=== PATIENT | female | born 1995 | race Caucasian/White ===

== ENCOUNTER 2018-01-02 20:50 | Emergency (ER) | payer OTHER ==
[~2018-01-02] VITALS: Ht 165.1 cm; Wt 63.5 kg
[2018-01-02] MEDS ORDERED: ONDANSETRON PF 4 MG/2 ML VIAL. IV ONE (22:15)
[2018-01-02] MEDS ORDERED: IV NORMAL SALINE 1,000ML 1,000 ML IV ONE (22:15)
[2018-01-02] MEDS ORDERED: cefTRIAXone IV Push 1 GM VIAL. IVP ONE (22:15)
[2018-01-02] MEDS ORDERED: PHENAZOPYRIDINE 200 MG TABLET. PO ONE (22:15)
--- NOTE | 2018-01-02 22:35 | RAD ---
CT ABDOMEN PELVIS WO CONTRAST dated 01/02/2018 10:11 PM Indication: Pain [id number] Bilateral flank pain, some lower anterior abdomen pain also, nausea, vomiting, blood in urine. No priors.. Comparison: No comparison is available. Technique: Contiguous axial imaging of the abdomen and pelvis performed without the administration of IV or oral contrast. One or more of the following individualized dose reduction techniques were utilized for this examination: 1. Automated exposure control 2. Adjustment of the mA and/or kV according to patient size 3. Use of iterative reconstruction technique Findings: Limited images of the lung Bases are clear. Heart size within normal limits. No pleural pericardial effusion. Solid abdominal viscera not well evaluated in the absence of contrast material. No apparent attenuation abnormality of the liver or spleen. Pancreas, adrenal glands and kidneys are unremarkable. No stone or hydronephrosis. Unopacified GI tract is normal in caliber and contour. No focal bowel wall thickening. The appendix is normal in caliber. No ascites or lymphadenopathy. Abdominal aorta normal in caliber. Images of pelvis show nondistended urinary bladder. There is diffuse bladder wall thickening with mild inflammatory changes in the pericystic fat. Trace amount of free pelvic fluid. No pelvic adenopathy. Uterus and adnexa are unremarkable. Bone windows show no acute findings. IMPRESSION: 1. Mild diffuse wall thickening of the urinary bladder with pericystic inflammatory stranding. Consider acute or chronic cystitis. 2. Small amount of free pelvic fluid, nonspecific. 3. No evidence of renal stone or hydronephrosis. Electronically signed by: Awais Wilkinson MD (01/02/2018 10:32 PM) [facility]
[2018-01-02 22:48] LABS: BASO # 0.1 x10^3/uL (0.0-0.2); BASO % 1 % (0-3); EOS # 0.2 x10^3/uL (0.0-0.7); EOS % 1 % (0-3); HEMATOCRIT 40.8 % (36.0-47.0); HEMOGLOBIN 13.9 g/dL (12.0-15.5); LYMPH # 2.6 x10^3/uL (1.0-4.8); LYMPH % 19 % (24-48); MEAN CORPUSCULAR HEMOGLOBIN 31 pg (25-35); MEAN CORPUSCULAR HGB CONC 34 g/dL (31-37); MEAN CORPUSCULAR VOLUME 92 fL (79-100); MONO # 0.9 x10^3/uL (0.0-1.1); MONO % 7 % (0-9); NEUT # 9.8 x10^3uL (1.8-7.7); NEUT % 72 % (31-73); PLATELET COUNT 254 x10^3/uL (140-400); RED BLOOD COUNT 4.44 x10^6/uL (3.50-5.40); RED CELL DISTRIBUTION WIDTH 12.2 % (11.5-14.5); WHITE BLOOD COUNT 13.7 x10^3/uL (4.0-11.0)
[2018-01-02 22:50] LABS: CALCIUM 9.4 mg/dL (8.5-10.1); CREATININE 0.8 mg/dL (0.6-1.0); GFR 89.7; POTASSIUM 3.6 mmol/L (3.5-5.1)
[2018-01-02 22:54] LABS: BACTERIA,URINE MANY /HPF (0-FEW); BILIRUBIN,URINE NEG (NEG); CLARITY,URINE HAZY; COLOR,URINE YELLOW; GLUCOSE,URINE 100 mg/dL (NEG); NITRITE,URINE POS (NEG); SQUAMOUS EPITHELIAL CELL,UR MANY /LPF; UROBILINOGEN,URINE 1 mg/dL (0.2 mg/dL); WBC,URINE >40 /HPF (0-4)
[2018-01-02 23:00] VITALS: BP 122/70
[2018-01-02] MEDS ORDERED: TRAM-48 PO (23:00)
[2018-01-02] MEDS ORDERED: PHEN-318 PO (23:00)
[2018-01-02] MEDS ORDERED: traMADol 50 MG TABLET PO ONE (23:00)
--- NOTE | 2018-01-02 23:00 | PHYS DOC ---
Past History Past Medical History: UTI Past Surgical History: Alcohol Use: None Drug Use: None Adult General Chief Complaint Chief Complaint: PAIN ON URINATION HPI HPI Patient is a 22-year-old female who presents here today secondary to dysuria and pain to her left flank region. Patient reports that she saw her doctor earlier today and she was given a shot of Toradol and Rocephin and given a prescription for Cipro. Patient reports that this evening she does feel any better still having significant amount discomfort so she was instructed to come to the ER for further evaluation. Patient has any history of fevers shakes chills nausea vomiting diarrhea. Patient reports no history of kidney stones in the past. Patient complains of significant amount of dysuria frequency or urgency. Patient complaining of pain radiating to her flank. Patient denies any tenderness near the McBurney's point. Review of systems: Constitutional: Denies fever or chills Eyes: Denies change in visual acuity, redness, or eye pain HENT: Denies nasal congestion or sore throat All other review systems are negative except as documented in the history of present illness portion. Physical exam: Constitutional: Well developed, well nourished, no acute distress, non-toxic appearance. HENT: Normocephalic, atraumatic, bilateral external ears normal, nose normal. Eyes: EOMI, conjunctiva normal, no discharge. Neck: Normal range of motion, no tenderness, supple, no stridor. Cardiovascular:Heart rate regular rhythm Lungs & Thorax: Bilateral breath sounds clear to auscultation no respiratory distress Abdomen: Bowel sounds normal, soft, tenderness, no masses, no pulsatile masses. Skin: Warm, dry, no erythema, no rash. Back: Left flank tenderness Extremities: No tenderness, no cyanosis, no clubbing, ROM intact, no edema. Neurologic: Alert and oriented X 3, normal motor function, normal sensory function, no focal deficits noted. Psychologic: Affect normal, judgement normal, mood normal. Abdomen soft tenderness to palpation suprapubic region. Tender to palpation left flank. Tender no rebound or guarding NABS. No Wheeler sign, no tenderness to McBurney's point. Patient not present with any signs or symptoms of be consistent with an acute surgical abdomen. CT of the abdomen pelvis: No evidence of renal stones. Consistent with cystitis. Assessment and plan 22-year-old female who presents here today with sinus symptoms consistent with urinary tract infection. Given the patient's flank tenderness a CT scan was obtained to rule out renal colic with bilateral hydronephrosis. CT scan was negative. There was no evidence of appendicitis or kidney stones. Patient does feel improved after the IV fluids in the ED. Patient be given Ultram and instructed to continue the antibiotics prescribed by her primary care physician. Current Medications Current Medications Current Medications Medications (Trade) Dose Ordered Sig/Natali Start Time Stop Time Status Last Admin Dose Admin Ceftriaxone Sodium 1 gm/ Sodium Chloride 50 ml @ 100 mls/hr 1X ONCE 01/02/18 22:15 01/02/18 22:44 UNV Ceftriaxone Sodium (Rocephin) 1 gm 1X ONCE 01/02/18 22:15 01/02/18 22:16 DC 01/02/18 22:37 1 GM Ondansetron HCl (Zofran) 4 mg 1X ONCE 01/02/18 22:15 01/02/18 22:16 DC 01/02/18 22:35 4 MG Phenazopyridine HCl (Pyridium) 200 mg 1X ONCE 01/02/18 22:15 01/02/18 22:16 DC 01/02/18 22:37 200 MG Sodium Chloride 1,000 ml @ 1,000 mls/hr 1X ONCE 01/02/18 22:15 01/02/18 23:14 01/02/18 22:35 1,000 MLS/HR Allergies Allergies Allergies Coded Allergies Type Severity Reaction Last Updated Verified amoxicillin Allergy Unknown 01/02/18 Yes Current Patient Data Vital Signs Vital Signs Date Time Temp Pulse Resp B/P (MAP) Pulse Ox O2 Delivery O2 Flow Rate FiO2 01/02/18 21:05 98.7 100 18 98 Room Air Lab Results Laboratory Tests Test 01/02/18 21:16 01/02/18 22:25 POC Urine HCG, Qualitative hcg negative (Negative) White Blood Count 13.7 x10^3/uL (4.0-11.0) H Red Blood Count 4.44 x10^6/uL (3.50-5.40) Hemoglobin 13.9 g/dL (12.0-15.5) Hematocrit 40.8 % (36.0-47.0) Mean Corpuscular Volume 92 fL (79-100) Mean Corpuscular Hemoglobin 31 pg (25-35) Mean Corpuscular Hemoglobin Concent 34 g/dL (31-37) Red Cell Distribution Width 12.2 % (11.5-14.5) Platelet Count 254 x10^3/uL (140-400) Neutrophils (%) (Auto) 72 % (31-73) Lymphocytes (%) (Auto) 19 % (24-48) L Monocytes (%) (Auto) 7 % (0-9) Eosinophils (%) (Auto) 1 % (0-3) Basophils (%) (Auto) 1 % (0-3) Neutrophils # (Auto) 9.8 x10^3uL (1.8-7.7) H Lymphocytes # (Auto) 2.6 x10^3/uL (1.0-4.8) Monocytes # (Auto) 0.9 x10^3/uL (0.0-1.1) Eosinophils # (Auto) 0.2 x10^3/uL (0.0-0.7) Basophils # (Auto) 0.1 x10^3/uL (0.0-0.2) Sodium Level 140 mmol/L (136-145) Potassium Level 3.6 mmol/L (3.5-5.1) Chloride Level 102 mmol/L (98-107) Carbon Dioxide Level 30 mmol/L (21-32) Anion Gap 8 (6-14) Blood Urea Nitrogen 13 mg/dL (7-20) Creatinine 0.8 mg/dL (0.6-1.0) Estimated GFR (Cockcroft-Gault) 89.7 Glucose Level 88 mg/dL (70-99) Calcium Level 9.4 mg/dL (8.5-10.1) EKG EKG [] Radiology/Procedures Radiology/Procedures [] Course & Med Decision Making Course & Med Decision Making Pertinent Labs and Imaging studies reviewed. (See chart for details) [] Dragon Disclaimer Dragon Disclaimer This electronic medical record was generated, in whole or in part, using a voice recognition dictation system. Departure Departure: Impression: Primary Impression: Urinary tract infection Disposition: HOME, SELF-CARE Condition: IMPROVED Referrals: DAFNE BARKLEY (PCP) Patient Instructions: Urinary Tract Infection Scripts Phenazopyridine Hcl (PYRIDIUM) 200 Mg Tablet 200 MG PO TID, #9 TAB Prov: HANNAH CALL MD 01/02/18 Tramadol Hcl (ULTRAM) 50 Mg Tablet 50 MG PO PRN Q6HRS Y for PAIN, #20 TAB Prov: HANNAH CALL MD 01/02/18 HANNAH CALL MD Jan 02, 2018 23:00
== END 2018-01-02 23:23 | disposition home or self-care (01) ==
LOC: ER 20:50
DX: N39.0 Urinary tract infection, site not specified (principal); Z88.1 Allergy status to other antibiotic agents
CPT/HCPCS: 36415; 74176; 80048; 81001; 81025; 85025; 87086; 96361; 96374; 96375; 99285; J0696; J2405; J7030

== ENCOUNTER 2021-02-11 01:04 | Emergency (ER) | payer MEDICAID, OTHER ==
[~2021-02-11] VITALS: Ht 165.1 cm; Wt 68.2 kg
[~2021-02-11 01:04] MED LIST: PHEN-318 PO; TRAM-48 PO
[2021-02-11] MEDS ORDERED: IV NORMAL SALINE 1,000ML 1,000 ML IV ONE (01:30)
--- NOTE | 2021-02-11 01:40 | EKG ---
[address] [address] Test Date: 2021-02-11 Test Time: 01:32:06 Pat Name: VIVEK HERRERA Department: Room: Gender: F Seat Cover Maker: : 1995 Requested By: NJ BASSETT Order Number: [id number] Reading MD: Measurements Intervals [place] Rate: 96 P: -1 CA: 158 QRS: 36 QRSD: 84 T: 38 QT: 344 QTc: 441 Interpretive Statements SINUS RHYTHM NO SPECIFIC ECG ABNORMALITIES RI6.02 No previous ECG available for comparison
--- NOTE | 2021-02-11 01:47 | PHYS DOC ---
Past History Past Medical History: UTI Past Surgical History: Alcohol Use: None Drug Use: None Adult General Chief Complaint Chief Complaint: MULTIPLE COMPLAINTS HPI HPI This note was created in error, please see other note in chart Radiology/Procedures Radiology/Procedures [] Heart Score C/O Chest Pain: No Risk Factors: Risk Factors: DM, Current or recent (<one month) smoker, HTN, HLP, family history of CAD, obesity. Risk Scores: Risk Factors: DM, Current or recent (<one month) smoker, HTN, HLP, family history of CAD, obesity. Dragon Disclaimer Dragon Disclaimer This electronic medical record was generated, in whole or in part, using a voice recognition dictation system. Departure Departure: Referrals: PCP,NO (PCP) NJ BASSETT DO Feb 11, 2021 01:47
--- NOTE | 2021-02-11 01:54 | PHYS DOC ---
Past History Past Medical History: UTI Past Surgical History: Alcohol Use: None Drug Use: None Adult General HPI HPI Patient is a 25-year-old female who presents with nausea, and a general feeling of malaise. She reports that she woke this morning fine however around 12:30 PM she was laying in bed with her boyfriend and reports her waken up with abdominal cramping and wave of nausea. She reports she was trying to tell her boyfriend what was happening however was having difficulty communicating with him. She reports this episode lasted a couple minutes and when she came out of it she noticed that she had a headache and was really nauseous. She reports she currently feels out of it however has not vomited. She denies any medical history and denies any daily medications. Denies fevers at home, denies chest pain, shortness of breath, vomiting, diarrhea. Admits to marijuana use however denies tobacco, alcohol, and other drug use. Last meal was ~6-7 prior to waking up and was questionable BBQ ribs Review of Systems Review of Systems Fourteen body systems of review of systems have been reviewed. See HPI for pertinent positives and negative responses, other sorto all other systems are negative, non-pertinent or non-contributory Current Medications Current Medications Current Medications Medications (Trade) Dose Ordered Sig/Natali Start Time Stop Time Status Last Admin Dose Admin Sodium Chloride 1,000 ml @ 75 mls/hr 1X ONCE 02/11/21 01:30 02/11/21 14:49 Allergies Allergies Allergies Coded Allergies Type Severity Reaction Last Updated Verified amoxicillin Allergy Unknown 01/02/18 Yes Physical Exam Physical Exam Constitutional: Well developed, well nourished, no acute distress, non-toxic appearance. HENT: Normocephalic, atraumatic, bilateral external ears normal, oropharynx moist, no oral exudates, nose normal. Eyes: PERRLA, EOMI, conjunctiva normal, no discharge. Neck: Normal range of motion, no tenderness, supple, no stridor. Cardiovascular: Heart rate regular, sinus rhythm, no murmurs rubs or gallops Lungs & Thorax: Bilateral breath sounds clear to auscultation Abdomen: Bowel sounds normal, soft, no tenderness, no masses, no pulsatile masses. Nonsurgical abdomen, no peritoneal signs Skin: Warm, dry, no erythema, no rash. Back: No tenderness, no CVA tenderness. Extremities: No tenderness, no cyanosis, no clubbing, ROM intact, no edema. Neurologic: Alert and oriented X 3, grossly normal motor & sensory function, no focal deficits noted. Psychologic: Affect normal, judgement normal, mood normal. Current Patient Data Vital Signs Vital Signs Date Time Temp Pulse Resp B/P (MAP) Pulse Ox O2 Delivery O2 Flow Rate FiO2 02/11/21 01:10 98.2 99 16 122/84 (97) 100 Room Air Vital Signs Date Time Temp Pulse Resp B/P (MAP) Pulse Ox O2 Delivery O2 Flow Rate FiO2 02/11/21 03:20 88 18 126/80 (95) 99 02/11/21 01:10 98.2 Room Air EKG EKG EKG ordered and interpreted by myself at 1340 hrs. as sinus rhythm at 96 bpm, unremarkable intervals, no axis deviation, no acute ischemic findings, no STEMI Radiology/Procedures Radiology/Procedures Single view chest dated 02/11/2021: No comparison available. Clinical Indication: Tachycardia. Findings: Single upright portable exam of the chest was performed. Heart size and mediastinal contours are within normal limits given technique. The lungs are clear without evidence of focal consolidation. Vascular interstitium is within normal limits. Impression:: Negative portable chest. Electronically signed by: Awais Wilkinson MD (02/11/2021 2:21 AM) [facility] Heart Score C/O Chest Pain: No Risk Factors: Risk Factors: DM, Current or recent (<one month) smoker, HTN, HLP, family history of CAD, obesity. Risk Scores: Risk Factors: DM, Current or recent (<one month) smoker, HTN, HLP, family history of CAD, obesity. Course & Med Decision Making Course & Med Decision Making Tachy otherwise VSS. HPI concerning for non-specific GI symptoms after questionable PO ingestion. PE unremarkable for emergent/surgical issues ER workup unremarkable. She responded to ER intervention provided and was asking for discharge at completion of therapy I reviewed this was likely BBQ food related issues such as a self-limiting gastroenteritis but did disclose this might be an acute presentation of more concerning pathology She has pcp and can be seen for close follow-up in outpatient setting, good access to care strict return precautions discussed with god understanding [place] Disclaimer [place] Disclaimer This electronic medical record was generated, in whole or in part, using a voice recognition dictation system. Departure Departure: Impression: Primary Impression: Nausea Additional Impression: Headache Disposition: HOME / SELF CARE / HOMELESS Condition: IMPROVED Referrals: [facility]CP[facility] (PCP) Patient Instructions: Nausea, Adult Additional Instructions: As discussed prior to ER departure, your physical exam was reassuring, your ER diagnostic work-up was nonconcerning for any emergent or surgical findings. The cause of your presenting symptoms is unknown. I suspect this might be due to the ribs you ate for dinner. This also could be sequelae from atypical migraine and/or seizure. I discussed utility of further diagnostic work-up in ER but joint decision was made to defer due to complete symptomatic improvement with ER intervention provided so far. Due to uncertainty of presenting events today, it is essential for you to follow-up in outpatient setting with your primary care physician as soon as possible for repeat evaluation. As discussed, there might be indication for outpatient neurology visit or other as deemed necessary by your physician. If any concerning signs or symptoms present prior to outpatient follow-up please do not hesitate to come back for repeat evaluation. There is a pleasure to take care of you and I wish you the best going forward Problem Qualifiers NJ BASSETT DO Feb 11, 2021 01:54
[2021-02-11] MEDS ORDERED: ONDANSETRON PF 4 MG/2 ML VIAL. IVP ONE (02:00)
[2021-02-11] MEDS ORDERED: PROCHLORPERAZINE 10 MG/2 ML VIAL. IV ONE ×2 (02:00→02:30)
[2021-02-11] MEDS ORDERED: diphenhydrAMINE 50 MG/ML VIAL IVP ONE ×2 (02:00→02:30)
[2021-02-11] MEDS ORDERED: KETOROLAC 15 MG/ML VIAL. IVP ONE (02:00)
[2021-02-11] MEDS ORDERED: PROCHLORPERAZINE 10 MG/2 ML VIAL. ONE (02:12)
[2021-02-11] MEDS ORDERED: diphenhydrAMINE 50 MG/ML VIAL ONE (02:12)
[2021-02-11 02:18] LABS: BASO # 0.1 x10^3/uL (0.0-0.2); BASO % 1 % (0-3); EOS # 0.1 x10^3/uL (0.0-0.7); EOS % 1 % (0-3); HEMATOCRIT 42.4 % (36.0-47.0); HEMOGLOBIN 14.3 g/dL (12.0-15.5); LYMPH # 3.1 x10^3/uL (1.0-4.8); LYMPH % 30 % (24-48); MEAN CORPUSCULAR HEMOGLOBIN 31 pg (25-35); MEAN CORPUSCULAR HGB CONC 34 g/dL (31-37); MEAN CORPUSCULAR VOLUME 93 fL (79-100); MONO # 0.6 x10^3/uL (0.0-1.1); MONO % 6 % (0-9); NEUT # 6.4 x10^3uL (1.8-7.7); NEUT % 62 % (31-73); PLATELET COUNT 284 x10^3/uL (140-400); RED BLOOD COUNT 4.55 x10^6/uL (3.50-5.40); RED CELL DISTRIBUTION WIDTH 12.8 % (11.5-14.5); WHITE BLOOD COUNT 10.4 x10^3/uL (4.0-11.0)
[2021-02-11 02:23] LABS: CALCIUM 9.2 mg/dL (8.5-10.1); CREATININE 0.8 mg/dL (0.6-1.0); GFR 87.4; POTASSIUM 3.2 mmol/L (3.5-5.1)
--- NOTE | 2021-02-11 02:23 | RAD ---
Single view chest dated 02/11/2021: No comparison available. Clinical Indication: Tachycardia. Findings: Single upright portable exam of the chest was performed. Heart size and mediastinal contours are with in normal limits given technique. The lungs are clear without evidence of focal consolidation. Vascul ar interstitium is within normal limits. Impression:: Negative portable chest. Electronically signed by: Awais Wilkinson MD (02/11/2021 2:21 AM) [facility]
[2021-02-11 02:29] LABS: ALBUMIN 4.3 g/dL (3.4-5.0); ALBUMIN/GLOBULIN RATIO 1.2 (1.0-1.7); TOTAL BILIRUBIN 0.4 mg/dL (0.2-1.0)
[2021-02-11] MEDS ORDERED: POTASSIUM CHLORIDE 20 MEQ TABLET.ER. PO ONE (02:30)
[2021-02-11 02:44] LABS: BACTERIA,URINE 0 /HPF (0-FEW); BILIRUBIN,URINE NEG (NEG); CLARITY,URINE CLEAR; COLOR,URINE YELLOW; GLUCOSE,URINE NEG (NEG); NITRITE,URINE NEG (NEG); RBC,URINE 0 /HPF (0-2); SQUAMOUS EPITHELIAL CELL,UR OCC /LPF; UROBILINOGEN,URINE 0.2 mg/dL (0.2 mg/dL); WBC,URINE OCC /HPF (0-4)
[2021-02-11 03:20] VITALS: BP 126/80
== END 2021-02-11 03:25 | disposition home or self-care (01) ==
LOC: ER 01:04
DX: R11.0 Nausea (principal); R51.9 Headache, unspecified; R53.81 Other malaise; R10.9 Unspecified abdominal pain; Z87.442 Personal history of urinary calculi; Z98.890 Other specified postprocedural states; Z88.1 Allergy status to other antibiotic agents
CPT/HCPCS: 36415; 71045; 80053; 81001; 81025; 83605; 85025; 93005; 96361; 96374; 96375; 99285; J0780; J1200; J1885; J7030

== ENCOUNTER → 2022-01-09 | Outpatient (CLI) | payer MEDICAID ==
--- NOTE | 2022-01-09 14:01 | RAD ---
EXAM: Right lower extremity venous Doppler. HISTORY: Right lower extremity pain/swelling. Recent orthopedic surgery. COMPARISON: None. FINDINGS: Grayscale and Doppler analysis of the right lower extremity deep venous system was performe d with graded compression and augmentation. The common femoral, greater saphenous, superficial femora l, popliteal and calf veins were assessed. There is no evidence of deep venous thrombosis. IMPRESSION: 1. No evidence of deep venous thrombosis. Electronically signed by: Lucio Johnston MD (01/09/2022 1:59 PM) [id number]
== END ==
LOC: RAD 13:21
PROVIDERS: ATTEND Physician Assistant Surgical
DX: I87.1 Compression of vein (principal); M79.89 Other specified soft tissue disorders; M79.604 Pain in right leg
CPT/HCPCS: 93971